=== PATIENT | female | born 1945 | race Caucasian/White ===

== ENCOUNTER 2022-07-27 15:46 | Emergency (ER) | payer MEDICARE ==
[2022-07-27] VITALS (8 sets, daily range): BP systolic 117–144; BP diastolic 67–124
== END 2022-07-27 17:47 | disposition home or self-care (01) ==
LOC: ED 15:46
DX: S00.12XA Contusion of left eyelid and periocular area, initial encounter (principal); S00.212A Abrasion of left eyelid and periocular area, initial encounter; W01.0XXA Fall on same level from slipping, tripping and stumbling without subsequent striking against object, initial encounter; Y92.009 Unspecified place in unspecified non-institutional (private) residence as the place of occurrence of the external cause